=== PATIENT | female | born 1970 | race Caucasian/White ===

== ENCOUNTER → 2024-03-27 09:59 | Outpatient (REF) | payer BC, SELFPAY | LOC: WDC 09:59 | PROVIDERS: ATTENDING PHYSICIAN Physician Assistant Medical | DX: N64.4 Mastodynia (principal); N60.01 Solitary cyst of right breast | CPT/HCPCS: 76642; 77062; 77066 ==

== ENCOUNTER → 2025-03-13 06:55 | Outpatient (REF) | payer BC, SELFPAY | LOC: HWRAD 06:55 | PROVIDERS: ATTENDING PHYSICIAN Physician Assistant Medical | DX: R79.89 Other specified abnormal findings of blood chemistry (principal) | CPT/HCPCS: 76700 ==

== ENCOUNTER → 2025-04-02 10:35 | Outpatient (REF) | payer BC, SELFPAY | LOC: WDC 10:35 | PROVIDERS: ATTENDING PHYSICIAN Physician Assistant Medical | DX: Z12.31 Encounter for screening mammogram for malignant neoplasm of breast (principal) | CPT/HCPCS: 77063; 77067 ==

== ENCOUNTER → 2025-07-13 08:51 | Outpatient (REF) | payer BC, SELFPAY ==
[2025-07-13 10:54] LABS: ALT (SGPT) 18 U/L (0-35); AST (SGOT) 22 U/L (14-36); Albumin 4.5 g/dl (3.5-5.0); Alkaline Phosphatase 52 U/L (38-126); Iron 111 ug/dl (37-170); Total Protein 6.8 g/dl (6.3-8.2)
[2025-07-13 11:04] LABS: Total Iron Binding Capacity 343 ug/dl (265-497)
[2025-07-13 11:30] LABS: Ferritin 78.4 ng/ml (11.1-264.0)
[2025-07-13 19:23] LABS: Hepatitis B Surface Antigen Negative (Negative)
[2025-07-15 02:04] LABS: ANA, IgG Reflex to HEp-2 None Detected (None Detected)
[2025-07-15 02:20] LABS: Mitochondrial M2 Ab, IgG 1.5 Units (0.0-24.9)
[2025-07-15 14:29] LABS: tTG IgA Antibody 2.6 EU/ml (0-19); tTG IgG Antibody 5.8 EU/ml (0-19)
[2025-07-15 21:03] LABS: LKM-1 Ab (IgG) 1.1 U (0.0-24.9)
[2025-07-16 03:10] LABS: HCV Quant by NAAT IU/mL Not Detected; HCV Quant by NAAT Interp Not Detected (Not Detected); HCV Quant by NAAT Log IU/mL Not Detected log IU/mL
== END ==
LOC: REG 08:51
PROVIDERS: ATTENDING PHYSICIAN Internal Medicine Gastroenterology; FAMILY PHYSICIAN Physician Assistant Medical
DX: R74.8 Abnormal levels of other serum enzymes (principal)
CPT/HCPCS: 36415; 80076; 82728; 82784; 83516; 83540; 83550; 86015; 86038; 86231; 86376; 86381; 86704; 86706; 87340; 87522

== ENCOUNTER 2025-07-17 06:21 | Day surgery (SDC) | payer BC, SELFPAY | END 2025-07-17 12:26 | disposition home or self-care (01) | LOC: GI 06:21 | PROVIDERS: ATTENDING PHYSICIAN Internal Medicine Gastroenterology; FAMILY PHYSICIAN Physician Assistant Medical | DX: Z12.11 Encounter for screening for malignant neoplasm of colon (principal); K57.30 Diverticulosis of large intestine without perforation or abscess without bleeding; K64.8 Other hemorrhoids; Z80.0 Family history of malignant neoplasm of digestive organs | CPT/HCPCS: G0121 ==

== ENCOUNTER 2025-09-26 04:51 | Emergency (ER) | payer BC, SELFPAY ==
[2025-09-26] VITALS (8 sets, daily range): BP systolic 101–117; BP diastolic 70–78; PULSE 82; O2SAT 99; BMI 30.2
[2025-09-26 06:22] LABS: Hematocrit 41.2 % (37.0-47.0); Hemoglobin 13.2 g/dL (12.0-16.0); Mean Corp Hgb Conc. 32.0 g/dL (33.0-37.0); Mean Corpuscular Volume 90.0 fL (81.0-99.0); Nucleated Red Blood Cells % 0 %; Platelet Count 208 10^3/uL (130-400); Red Cell Dist. Width 13.2 % (11.5-14.5)
[2025-09-26 06:32] LABS: ALT (SGPT) 18 U/L (0-35); AST (SGOT) 26 U/L (14-36); Albumin 4.2 g/dl (3.5-5.0); Alkaline Phosphatase 45 U/L (38-126); Blood Urea Nitrogen 14 mg/dl (7-17); Calcium 9.2 mg/dl (8.4-10.2); Carbon Dioxide 23 mmol/L (22-30); Chloride 110 mmol/L (98-107); Estimated Creatinine Clearance 91 ml/min; Glucose 90 mg/dl (70-99); Potassium 4.5 mmol/L (3.5-5.1); Sodium 137 mmol/L (135-145); Total Protein 6.8 g/dl (6.3-8.2); eGFR > 60.00
[2025-09-26] MEDS: NSS 1000 IV (06:39)
[2025-09-26 06:41] LABS: COVID-19 Antigen Negative (Negative)
[2025-09-26] MEDS: VALIUM INJECTION 5 MG IV (06:44)
--- NOTE | 2025-09-26 07:06 | ED.GENMED ---
History of Present Illness
General
Chief Complaint: Fainting Sensation
Source: patient
Exam Limitations: none
Time Seen by Provider: 09/26/25 06:10
History of Present Illness
History of Present Illness:
55-year-old female presents with head spinning, unsteady gait worse when she wakes up started a few days ago similar in the past never this severe no headache nausea without vomiting, initially states is not related to head movement, though it did
appear to be associate with head movement during my physical exam, also having some pain behind her right knee told she may have a Hurtado's cyst, incidentally perhaps has been bothering her more recently, no shortness of breath, no chest pain
Past History
Past History
ED Past Medical History: Hypothyroidism, Psychiatric and Other (Kidney stones)
ED Past Surgical History: Cholecystectomy
Social History
Tobacco: Non-smoker
Alcohol: None
Drug: None
Personal: Single
Living: with family
Employment: Employed
Family History
Family History: Other (No significant)
Review of Systems
Review of Systems
All Other Systems: Not applicable
Constitutional: Denies fever or fatigue
Respiratory: Reports no symptoms
Cardiac: Reports no symptoms
ABD/GI: Reports nausea
: Reports no symptoms
Musculoskeletal: Reports muscle stiffness
Neurological: Reports dizzy; Denies headache or weakness
Phy Exam
Physical Exam
Physical Exam:
Physical Exam
General: no apparent distress, not acutely ill
Neck: No jaundice
Heart: s1/s2 regular rate and rhythm, no murmur. equal radial pulses.
Lungs: no acute respiratory distress. clear bilaterally
Abdomen: Nontender
Neuro: alert and oriented. no focal neurological deficits clear speech no facial palsy normal finger-nose 2 beats of horizontal nystagmus,
Skin: no rash
Psychiatric: well kept. interactive and cooperative
Extremities: no edema
Course
Orders/Labs/Results
Orders:
Orders
09/26/25 04:52
EKG [Electrocardiogram (*1)] Urgent
Reason for Study: Vertigo / Dizzy
EKG- Treatment ONCE
09/26/25 06:10
COVID-19 Antigen Urgent
Source: Nasal Swab
Complete Blood Count/With Diff Urgent
Comprehensive Metabolic Panel Urgent
Influenza A+B Rapid Molecular Urgent
[facility] Source: Nasal Swab
Specimen Description:
09/26/25 06:37
CT Head W/o Iv Contrast Urgent
Comment:
Reason For Exam: ataxia
0.9% Sodium Chloride 1000 ml [Nss] 1,000 ml IV BOLUS
diazePAM [Valium Injection] 5 mg IV NOW STA
US Periph Venous LOWER Ext RT Urgent
Comment:
Reason For Exam: pian behind knee
09/26/25 06:38
Troponin I Urgent
Physical Therapy Consult [Pt Eval And Treat] Routine
Activity Level: Ambulate
Abnormal Lab Results
09/26/25
06:10
WBC 3.9 L 10^3/uL
(4.8-10.8)
MCHC 32.0 L g/dL
(33.0-37.0)
MPV 12.1 H fL
(7.4-10.4)
Monocytes % 9.6 H %
(1.7-9.3)
Chloride 110 H mmol/L
(98-107)
09/26/25 06:10
09/26/25 06:10
Vital Signs
Initial and Last Documented VS:
Initial Vital Signs
Temp Pulse Resp BP Pulse Ox
97.9 F 57 18 117/76 99
09/26/25 05:00 09/26/25 05:00 09/26/25 05:00 09/26/25 05:00 09/26/25 05:00
Last Documented Vital Signs
Temp Pulse Resp BP Pulse Ox
97.9 F 55 16 101/71 100
09/26/25 05:00 09/26/25 05:27 09/26/25 05:27 09/26/25 10:00 09/26/25 10:45
MDM/Problems Addressed
Differential Diagnosis Includes:
Benign positional vertigo Hurtado's cyst, DVT M�ni�re's electrolyte abnormality less likely CVA mass
MDM/Problems Addressed:
Dizziness vertiginous pain behind the right knee
Chronic conditions affecting care:
Thyroid
Acute Exacerbation and/or Progression of Chronic Illness:
Thyroid
*Radiology
Radiology exam reviewed: radiology read reviewed
*Pulse Oximetry
SaO2: 100
Oxygen Mode of Delivery: Room air
Patient hypoxic: no
*Critical Care Note
Total Time (30-74mins, 75-104mins- exclusive of procedures): Not Applicable
Update Note
Update Note:
9:30 AM update
Patient resting comfortably states she is feeling better
Labs noted CT noted awaiting ultrasound report
Awaiting PT evaluation patient updated
11 AM, seen by PT positive vestibular eval recommend outpatient
ED Attending Note
-
Portions of this chart may have been created with voice recognition software.� Occasional wrong word or��sound alike� substitutions may have occurred due to the inherent limitations of voice recognition software.
Discharge Plan
Departure
Patient Disposition: Home (Routine Discharge)
Date of Disposition: 09/26/25
Time of Disposition: 10:59
Patient with high blood pressure during this ER visit?: No
Condition: Good
Discharge Problem:
Vertigo
Instructions: Exercises (maneuvers) for benign paroxysmal positional vertigo, Vertigo - ED (DC)
Prescriptions:
New
meclizine [Antivert] 25 mg tablet,chewable
25 mg PO Q8HPRN PRN (Reason: nausea or vertigo) Qty: 20 0RF
diazepam [Valium] 5 mg tablet
5 mg PO BID PRN (Reason: vertigo) Qty: 10 0RF
No Action
clonazepam 0.5 MG tablet
0.5 mg PO BID
topiramate [Topamax] 100 MG tablet
100 mg PO PRN PRN (Reason: RESENDIZ)
atomoxetine [Strattera] 100 MG capsule
100 mg PO DAILY
ondansetron HCl 4 MG tablet
4 mg PO TIDPRN PRN (Reason: nausea) Qty: 30 0RF
oxycodone 5 MG/5 ML solution
5 mg PO Q4HPRN PRN (Reason: severe pain) Qty: 20 0RF
Referrals:
Renetta Ellison PA [Family Provider, Family Practice]
Activity Restrictions/Additional Instructions:
Follow-up with physical therapy and your primary care provider
Consider obtaining vestibular therapy with physical therapy
Interventions
Interventions:
*Risk Screen - Suicide Last Done: 09/26/25 04:55
*General Assessment Last Done: 09/26/25 05:33
*Neglect/Abuse Screening Last Done: 09/26/25 05:35
*ED COVID-19 Vaccine History Last Done: 09/26/25 05:35
*ED Influenza Vaccine History Last Done: 09/26/25 05:35
[facility] Risk Assessment Tool Last Done: 09/26/25 05:39
ED- Cardiac Assessment Last Done: 09/26/25 05:30
ED- Neurological Assessment Last Done: 09/26/25 05:30
Discharge Date and Time
Print Language: GERMAN
[2025-09-26 07:32] LABS: Troponin I < 0.012 ng/ml
== END 2025-09-26 11:15 | disposition home or self-care (01) ==
LOC: EMR 04:51
PROVIDERS: Emergency Medicine; EMERGENCY PHYSICIAN Emergency Medicine; FAMILY PHYSICIAN Physician Assistant Medical
DX: R42 Dizziness and giddiness (principal); R55 Syncope and collapse; E03.9 Hypothyroidism, unspecified; G93.5 Compression of brain; Z87.442 Personal history of urinary calculi; Z90.49 Acquired absence of other specified parts of digestive tract
CPT/HCPCS: 99284; 96374; 96361; 70450; 80053; 84484; 85025; 87502; 87811; 93005; 93971; 97530